=== PATIENT | female | born 1965 | race Caucasian/White ===

== ENCOUNTER 2018-12-21 10:22 | Inpatient (IN) | payer OTHER ==
[~2018-12-21] VITALS: Ht 162.6 cm; Wt 65.8 kg
[2018-12-21 10:31] VITALS: Ht 162.6 cm; Wt 65.8 kg
[2018-12-21 11:35] LABS: CALCIUM 8.5 mg/dL (8.5-10.1); CARBON DIOXIDE 30.6 mmol/L (21-32); CHLORIDE SERUM 93 mmol/L (98-107); CREATININE SERUM 2.6 mg/dL (0.6-1.0); GFR1 20 mL/min; GLUCOSE SERUM 117 mg/dL (74-106); SODIUM SERUM 133 mmol/L (136-145)
[2018-12-21 11:39] LABS: UA SPECIFIC GRAVITY >=1.030 (1.005-1.035); microscopic required? YES; urine erythrocyte 2+ (NEGATIVE)
[2018-12-21 11:39] LABS: AMPHETAMINE QUAL UR NONE DETECTED (See below)
[2018-12-21 11:46] LABS: ALKALINE PHOSPHATASE 110 U/L (46-116); ALT/SGPT 26 U/L (14-59); AST/SGOT 39 U/L (15-37); BILIRUBIN TOTAL 0.58 mg/dL (0.20-1.00); MAGNESIUM 2.7 mg/dL (1.8-2.4); T4(THYROXINE) 5.4 ug/dL (4.7-13.3); TOTAL PROTEIN, SERUM 6.3 g/dL (6.4-8.2)
[2018-12-21 11:54] LABS: LIPASE 7 IU/L (73-393)
[2018-12-21 11:56] LABS: ALBUMIN 1.8 g/dL (3.4-5.0); CHOLESTEROL 79 mg/dL (<200); HDL CHOLESTEROL 9 mg/dL (40-60)
[2018-12-21 12:02] LABS: RED CELL DISTRIBUTION WIDTH 19.1 % (11.5-14.5)
[2018-12-21 12:03] LABS: PLATELET COUNT 1307 x10^3mcL (130-400)
[2018-12-21 12:36] LABS: BASOPHIL 0 % (0-2); MONOCYTE 5 % (0-7); SEGMENTED NEUTROPHILS 82 % (37-75)
[2018-12-21 12:37] LABS: BAND NEUTROPHIL 10 % (0-10)
[2018-12-21 12:40] LABS: rbc morphology (normal/abnorm) ABNORMAL (NORMAL)
[2018-12-21 12:43] LABS: target cell (codocyte) 2+
[2018-12-21 12:45] LABS: burr cell (echinocyte) 1+
[2018-12-21 17:11] VITALS: BP 94/48
[2018-12-21 20:33] VITALS: BP 91/50
[2018-12-21 22:50] VITALS: BP 98/51
[2018-12-22 04:36] VITALS: BP 97/50
[2018-12-22 06:32] LABS: CARBON DIOXIDE 29.6 mmol/L (21-32); CREATININE SERUM 1.8 mg/dL (0.6-1.0); MAGNESIUM 2.8 mg/dL (1.8-2.4)
[2018-12-22 06:41] LABS: IRON 22 ug/dL (50-170); TOTAL IRON BINDING CAPACITY 136 ug/dL (250-450)
[2018-12-22 06:43] LABS: IRON 23 ug/dL (50-170); TOTAL IRON BINDING CAPACITY 137 ug/dL (250-450)
[2018-12-22 06:59] LABS: POTASSIUM SERUM 2.4 mmol/L (3.5-5.1)
[2018-12-22 08:08] LABS: RED CELL DISTRIBUTION WIDTH 19.4 % (11.5-14.5)
[2018-12-22 08:09] LABS: PLATELET COUNT 896 x10^3mcL (130-400)
[2018-12-22 08:25] VITALS: BP 95/52
[2018-12-22 08:51] LABS: MONOCYTE 3 % (0-7); SEGMENTED NEUTROPHILS 96 % (37-75)
[2018-12-22 08:53] LABS: PLATELET MORPHOLOGY PLATELETS INCREASED; rbc morphology (normal/abnorm) ABNORMAL (NORMAL)
[2018-12-22 11:54] VITALS: BP 103/42
[2018-12-22 16:47] VITALS: BP 98/47
[2018-12-22 20:00] VITALS: BP 109/44
[2018-12-23 04:06] VITALS: BP 93/45
[2018-12-23 08:50] VITALS: BP 109/48
[2018-12-23 09:20] LABS: ALKALINE PHOSPHATASE 159 U/L (46-116); ALT/SGPT 16 U/L (14-59); AST/SGOT 19 U/L (15-37); BILIRUBIN TOTAL 0.82 mg/dL (0.20-1.00); CALCIUM 7.1 mg/dL (8.5-10.1); CARBON DIOXIDE 26.1 mmol/L (21-32); CHLORIDE SERUM 103 mmol/L (98-107); GFR1 > 60 mL/min; GLUCOSE SERUM 145 mg/dL (74-106); SODIUM SERUM 139 mmol/L (136-145)
[2018-12-23 09:24] LABS: ALBUMIN 1.4 g/dL (3.4-5.0); POTASSIUM SERUM 2.4 mmol/L (3.5-5.1); TOTAL PROTEIN, SERUM 5.3 g/dL (6.4-8.2)
[2018-12-23 09:54] LABS: RED CELL DISTRIBUTION WIDTH 19.4 % (11.5-14.5)
[2018-12-23 09:55] LABS: PLATELET COUNT 890 x10^3mcL (130-400)
[2018-12-23 10:28] LABS: MONOCYTE 2 % (0-7); SEGMENTED NEUTROPHILS 95 % (37-75); rbc morphology (normal/abnorm) ABNORMAL (NORMAL)
[2018-12-23 10:30] LABS: PLATELET MORPHOLOGY INCREASD.
[2018-12-23 17:22] VITALS: BP 95/51
[2018-12-23 20:22] VITALS: BP 113/53
[2018-12-24 05:37] VITALS: BP 92/52
[2018-12-24 06:18] LABS: CALCIUM 6.8 mg/dL (8.5-10.1); CHLORIDE SERUM 106 mmol/L (98-107); CREATININE SERUM 0.7 mg/dL (0.6-1.0); GFR1 > 60 mL/min; GLUCOSE SERUM 111 mg/dL (74-106); MAGNESIUM 2.5 mg/dL (1.8-2.4); SODIUM SERUM 140 mmol/L (136-145)
[2018-12-24 06:33] LABS: RED CELL DISTRIBUTION WIDTH 19.5 % (11.5-14.5)
[2018-12-24 06:55] LABS: POTASSIUM SERUM 2.8 mmol/L (3.5-5.1)
[2018-12-24 08:15] LABS: BAND NEUTROPHIL 1 % (0-10); BASOPHIL 0 % (0-2); MONOCYTE 6 % (0-7); SEGMENTED NEUTROPHILS 89 % (37-75)
[2018-12-24 08:16] LABS: PLATELET MORPHOLOGY PLATELETS INCREASED; rbc morphology (normal/abnorm) ABNORMAL (NORMAL)
[2018-12-24 08:20] LABS: PLATELET COUNT 959 x10^3mcL (130-400)
[2018-12-24 08:38] VITALS: BP 113/51
[2018-12-24 16:30] VITALS: BP 118/58
[2018-12-24 19:15] VITALS: BP 115/59
[2018-12-24 20:44] VITALS: BP 108/49
[2018-12-25 04:34] VITALS: BP 114/63
[2018-12-25 06:28] LABS: CALCIUM 6.9 mg/dL (8.5-10.1); CARBON DIOXIDE 26.2 mmol/L (21-32); CHLORIDE SERUM 105 mmol/L (98-107); CREATININE SERUM 0.7 mg/dL (0.6-1.0); GFR1 > 60 mL/min; GLUCOSE SERUM 81 mg/dL (74-106); MAGNESIUM 2.1 mg/dL (1.8-2.4); POTASSIUM SERUM 3.4 mmol/L (3.5-5.1); SODIUM SERUM 139 mmol/L (136-145)
[2018-12-25 07:42] LABS: PLATELET COUNT 951 x10^3mcL (130-400); RED CELL DISTRIBUTION WIDTH 25.4 % (11.5-14.5)
[2018-12-25 08:23] LABS: BAND NEUTROPHIL 12 % (0-10); BASOPHIL 0 % (0-2); MONOCYTE 8 % (0-7); SEGMENTED NEUTROPHILS 75 % (37-75)
[2018-12-25 08:28] LABS: rbc morphology (normal/abnorm) ABNORMAL (NORMAL)
[2018-12-25 08:29] LABS: PLATELET MORPHOLOGY PLATELETS INCREASED; burr cell (echinocyte) 1+; ovalocyte/elliptocyte 1+; target cell (codocyte) 1+; tear drop cell (dacryocyte) 2+
[2018-12-25 08:38] VITALS: BP 108/51
[2018-12-25 13:21] VITALS: BP 108/51
[2018-12-25] MEDS ORDERED: ACETAMINOPHEN-H1 TA1 PO (14:40)
[2018-12-25] MEDS ORDERED: CYCLOBENZAPRINE5 MG PO (14:40)
[2018-12-25 17:38] VITALS: BP 108/58
[2018-12-25 22:00] VITALS: BP 131/51
[2018-12-26 06:25] VITALS: BP 111/56
[2018-12-26 07:28] LABS: CALCIUM 6.9 mg/dL (8.5-10.1); CARBON DIOXIDE 24.3 mmol/L (21-32); CHLORIDE SERUM 102 mmol/L (98-107); CREATININE SERUM 0.6 mg/dL (0.6-1.0); GFR1 > 60 mL/min; GLUCOSE SERUM 83 mg/dL (74-106); SODIUM SERUM 136 mmol/L (136-145)
[2018-12-26 07:34] LABS: RED CELL DISTRIBUTION WIDTH 26.3 % (11.5-14.5)
[2018-12-26 07:38] LABS: PLATELET COUNT 1120 x10^3mcL (130-400)
[2018-12-26 08:01] LABS: POTASSIUM SERUM 2.9 mmol/L (3.5-5.1)
[2018-12-26 11:21] LABS: BAND NEUTROPHIL 14 % (0-10); BASOPHIL 0 % (0-2); MONOCYTE 6 % (0-7); PLATELET MORPHOLOGY PLATELETS INCREASED; SEGMENTED NEUTROPHILS 74 % (37-75); rbc morphology (normal/abnorm) ABNORMAL (NORMAL)
[2018-12-26 11:22] LABS: burr cell (echinocyte) 1+; target cell (codocyte) 1+
[2018-12-26 11:23] LABS: ovalocyte/elliptocyte 1+; tear drop cell (dacryocyte) 1+
[2018-12-26 16:48] VITALS: BP 120/63
[2018-12-26 21:58] VITALS: BP 121/64
[2018-12-26 23:18] LABS: APPEARANCE FLUID CLOUDY; COLOR FLUID MILKY; SITE FLUID LEFT; SOURCE FLUID LEFT PELVIC ABCESS
[2018-12-26 23:19] LABS: RBC FLUID 110 /cumm; WBC FLUID 220880 /cumm
[2018-12-27 06:23] VITALS: BP 129/64
[2018-12-27 10:00] VITALS: BP 138/70
[2018-12-27 16:35] VITALS: BP 136/67
[2018-12-27 21:07] VITALS: BP 143/70
[2018-12-28 06:10] VITALS: BP 107/65
[2018-12-28 06:24] LABS: ALKALINE PHOSPHATASE 137 U/L (46-116); ALT/SGPT 9 U/L (14-59); AST/SGOT 16 U/L (15-37); BILIRUBIN TOTAL 0.54 mg/dL (0.20-1.00); CALCIUM 7.3 mg/dL (8.5-10.1); CARBON DIOXIDE 23.9 mmol/L (21-32); CHLORIDE SERUM 105 mmol/L (98-107); CREATININE SERUM 0.6 mg/dL (0.6-1.0); GFR1 > 60 mL/min; GLUCOSE SERUM 83 mg/dL (74-106); MAGNESIUM 1.6 mg/dL (1.8-2.4); POTASSIUM SERUM 3.7 mmol/L (3.5-5.1); SODIUM SERUM 138 mmol/L (136-145)
[2018-12-28 06:25] LABS: ALBUMIN 1.3 g/dL (3.4-5.0); TOTAL PROTEIN, SERUM 5.5 g/dL (6.4-8.2)
[2018-12-28 08:34] LABS: RED CELL DISTRIBUTION WIDTH 27.9 % (11.5-14.5)
[2018-12-28 08:36] LABS: PLATELET COUNT 1164 x10^3mcL (130-400)
[2018-12-28 09:46] VITALS: BP 140/70
[2018-12-28 13:15] LABS: BAND NEUTROPHIL 9 % (0-10); MONOCYTE 5 % (0-7); SEGMENTED NEUTROPHILS 79 % (37-75)
[2018-12-28 13:16] LABS: burr cell (echinocyte) 1+; ovalocyte/elliptocyte 1+; rbc morphology (normal/abnorm) ABNORMAL (NORMAL); target cell (codocyte) 1+; tear drop cell (dacryocyte) 1+
[2018-12-28 13:17] LABS: PLATELET MORPHOLOGY PLATELETS INCREASED
[2018-12-28 16:53] VITALS: BP 128/64
[2018-12-28 19:47] VITALS: BP 132/67
[2018-12-29 05:12] VITALS: BP 127/74
[2018-12-29 06:29] LABS: ALKALINE PHOSPHATASE 161 U/L (46-116); ALT/SGPT 12 U/L (14-59); AST/SGOT 16 U/L (15-37); BILIRUBIN TOTAL 0.6 mg/dL (0.20-1.00); CALCIUM 7.4 mg/dL (8.5-10.1); CARBON DIOXIDE 26.9 mmol/L (21-32); CHLORIDE SERUM 105 mmol/L (98-107); CREATININE SERUM 0.6 mg/dL (0.6-1.0); GFR1 > 60 mL/min; GLUCOSE SERUM 73 mg/dL (74-106); MAGNESIUM 1.7 mg/dL (1.8-2.4); POTASSIUM SERUM 3.7 mmol/L (3.5-5.1); SODIUM SERUM 140 mmol/L (136-145)
[2018-12-29 07:14] LABS: ALBUMIN 1.5 g/dL (3.4-5.0)
[2018-12-29 08:23] LABS: PLATELET COUNT 1306 x10^3mcL (130-400)
[2018-12-29 09:12] VITALS: BP 134/65
[2018-12-29 10:29] LABS: BAND NEUTROPHIL 10 % (0-10); BASOPHIL 0 % (0-2); MONOCYTE 6 % (0-7); SEGMENTED NEUTROPHILS 74 % (37-75); rbc morphology (normal/abnorm) ABNORMAL (NORMAL)
[2018-12-29 10:30] LABS: burr cell (echinocyte) 1+; target cell (codocyte) 1+; tear drop cell (dacryocyte) 1+
[2018-12-29 10:31] LABS: PLATELET MORPHOLOGY PLATELETS INCREASED
[2018-12-29 16:29] VITALS: BP 128/67
[2018-12-29 21:35] VITALS: BP 125/64
[2018-12-30 05:40] VITALS: BP 130/57
[2018-12-30 08:39] VITALS: BP 125/72
[2018-12-30 15:12] LABS: CALCIUM 7.2 mg/dL (8.5-10.1); CARBON DIOXIDE 27.5 mmol/L (21-32); CHLORIDE SERUM 108 mmol/L (98-107); CREATININE SERUM 0.6 mg/dL (0.6-1.0); GFR1 > 60 mL/min; GLUCOSE SERUM 128 mg/dL (74-106); POTASSIUM SERUM 3.4 mmol/L (3.5-5.1); SODIUM SERUM 143 mmol/L (136-145)
[2018-12-30 16:35] VITALS: BP 139/63
[2018-12-30 21:05] VITALS: BP 123/52
[2018-12-30 21:49] VITALS: BP 123/52
[2018-12-31 05:58] VITALS: BP 137/66
[2018-12-31 06:30] LABS: CALCIUM 7.3 mg/dL (8.5-10.1); CARBON DIOXIDE 27.6 mmol/L (21-32); CHLORIDE SERUM 106 mmol/L (98-107); CREATININE SERUM 0.6 mg/dL (0.6-1.0); GFR1 > 60 mL/min; GLUCOSE SERUM 91 mg/dL (74-106); SODIUM SERUM 142 mmol/L (136-145)
[2018-12-31 07:04] LABS: POTASSIUM SERUM 2.8 mmol/L (3.5-5.1)
[2018-12-31 09:33] VITALS: BP 142/65
[2018-12-31 17:26] VITALS: BP 141/75
[2018-12-31 20:33] VITALS: BP 131/67
[2019-01-01 06:01] VITALS: BP 142/64
[2019-01-01 06:54] LABS: BASOPHIL % 0.1 % (0-2)
[2019-01-01 07:00] LABS: ALKALINE PHOSPHATASE 161 U/L (46-116); ALT/SGPT 9 U/L (14-59); AST/SGOT 11 U/L (15-37); BILIRUBIN TOTAL 0.5 mg/dL (0.20-1.00); CALCIUM 7.4 mg/dL (8.5-10.1); CARBON DIOXIDE 25.7 mmol/L (21-32); CHLORIDE SERUM 108 mmol/L (98-107); CREATININE SERUM 0.6 mg/dL (0.6-1.0); GFR1 > 60 mL/min; GLUCOSE SERUM 77 mg/dL (74-106); MAGNESIUM 1.4 mg/dL (1.8-2.4); POTASSIUM SERUM 3.1 mmol/L (3.5-5.1); SODIUM SERUM 142 mmol/L (136-145)
[2019-01-01 07:01] LABS: RED CELL DISTRIBUTION WIDTH 29.1 % (11.5-14.5)
[2019-01-01 07:06] LABS: ALBUMIN 1.3 g/dL (3.4-5.0); PLATELET COUNT 1123 x10^3mcL (130-400); TOTAL PROTEIN, SERUM 5.6 g/dL (6.4-8.2)
[2019-01-01 09:44] VITALS: BP 130/63
[2019-01-01 10:13] LABS: rbc morphology (normal/abnorm) ABNORMAL (NORMAL)
[2019-01-01 17:02] VITALS: BP 142/105
[2019-01-01 17:40] VITALS: BP 142/105
[2019-01-01 18:07] VITALS: BP 128/71
[2019-01-01 18:23] LABS: microscopic required? NO
[2019-01-01 18:28] LABS: UA SPECIFIC GRAVITY 1.025 (1.005-1.035); urine erythrocyte NEGATIVE (NEGATIVE)
[2019-01-01 19:46] VITALS: BP 118/59
[2019-01-02 05:36] VITALS: BP 140/65
[2019-01-02 07:03] LABS: CALCIUM 7.4 mg/dL (8.5-10.1); CARBON DIOXIDE 24.6 mmol/L (21-32); CHLORIDE SERUM 108 mmol/L (98-107); CREATININE SERUM 0.5 mg/dL (0.6-1.0); GFR1 > 60 mL/min; GLUCOSE SERUM 83 mg/dL (74-106); MAGNESIUM 1.9 mg/dL (1.8-2.4); SODIUM SERUM 143 mmol/L (136-145)
[2019-01-02 07:52] LABS: RED CELL DISTRIBUTION WIDTH 29.7 % (11.5-14.5)
[2019-01-02 07:58] LABS: PLATELET COUNT 1020 x10^3mcL (130-400)
[2019-01-02 08:28] VITALS: BP 133/65
[2019-01-02 08:39] LABS: BAND NEUTROPHIL 0 % (0-10); BASOPHIL 0 % (0-2); MONOCYTE 8 % (0-7); PLATELET MORPHOLOGY PLATELETS INCREASED; SEGMENTED NEUTROPHILS 83 % (37-75); rbc morphology (normal/abnorm) ABNORMAL (NORMAL)
[2019-01-02 08:41] LABS: burr cell (echinocyte) 1+; target cell (codocyte) 1+; tear drop cell (dacryocyte) 1+
[2019-01-02 08:55] LABS: ALBUMIN 1.2 g/dL (3.4-5.0); AST/SGOT 13 U/L (15-37); BILIRUBIN TOTAL 0.4 mg/dL (0.20-1.00); TOTAL PROTEIN, SERUM 5.4 g/dL (6.4-8.2)
[2019-01-02 08:56] LABS: ALKALINE PHOSPHATASE 155 U/L (46-116); ALT/SGPT 7 U/L (14-59)
[2019-01-02 08:59] LABS: POTASSIUM SERUM 2.9 mmol/L (3.5-5.1)
[2019-01-02 16:23] VITALS: BP 148/76
[2019-01-02 21:55] VITALS: BP 133/61
[2019-01-03 05:46] VITALS: BP 142/68
[2019-01-03 07:02] LABS: ALKALINE PHOSPHATASE 156 U/L (46-116); ALT/SGPT 7 U/L (14-59); AST/SGOT 6 U/L (15-37); CALCIUM 7.4 mg/dL (8.5-10.1); CARBON DIOXIDE 26.9 mmol/L (21-32); CHLORIDE SERUM 110 mmol/L (98-107); CREATININE SERUM 0.5 mg/dL (0.6-1.0); GFR1 > 60 mL/min; GLUCOSE SERUM 92 mg/dL (74-106); MAGNESIUM 1.7 mg/dL (1.8-2.4); POTASSIUM SERUM 3.3 mmol/L (3.5-5.1); SODIUM SERUM 144 mmol/L (136-145)
[2019-01-03 07:03] LABS: ALBUMIN 1.2 g/dL (3.4-5.0); TOTAL PROTEIN, SERUM 5.6 g/dL (6.4-8.2)
[2019-01-03 07:49] LABS: RED CELL DISTRIBUTION WIDTH 29.6 % (11.5-14.5)
[2019-01-03 07:52] LABS: PLATELET COUNT 1033 x10^3mcL (130-400)
[2019-01-03 08:21] VITALS: BP 151/75
[2019-01-03 09:27] LABS: BAND NEUTROPHIL 0 % (0-10); BASOPHIL 0 % (0-2); MONOCYTE 8 % (0-7); SEGMENTED NEUTROPHILS 80 % (37-75)
[2019-01-03 09:28] LABS: rbc morphology (normal/abnorm) ABNORMAL (NORMAL)
[2019-01-03 09:30] LABS: burr cell (echinocyte) 1+; target cell (codocyte) 1+; tear drop cell (dacryocyte) 1+
[2019-01-03 15:08] VITALS: BP 151/75
[2019-01-03 17:12] VITALS: BP 151/76
[2019-01-03 19:56] VITALS: BP 148/72
[2019-01-04 04:36] VITALS: BP 114/75
[2019-01-04 05:04] VITALS: BP 151/79
[2019-01-04 06:59] LABS: ALKALINE PHOSPHATASE 157 U/L (46-116); ALT/SGPT 7 U/L (14-59); AST/SGOT 6 U/L (15-37); BILIRUBIN TOTAL 0.32 mg/dL (0.20-1.00); CALCIUM 7.5 mg/dL (8.5-10.1); CARBON DIOXIDE 29.7 mmol/L (21-32); CHLORIDE SERUM 110 mmol/L (98-107); CREATININE SERUM 0.5 mg/dL (0.6-1.0); GFR1 > 60 mL/min; GLUCOSE SERUM 88 mg/dL (74-106); MAGNESIUM 1.7 mg/dL (1.8-2.4); POTASSIUM SERUM 4.1 mmol/L (3.5-5.1); SODIUM SERUM 144 mmol/L (136-145)
[2019-01-04 07:02] LABS: ALBUMIN 1.2 g/dL (3.4-5.0); TOTAL PROTEIN, SERUM 5.6 g/dL (6.4-8.2)
[2019-01-04 08:18] LABS: RED CELL DISTRIBUTION WIDTH 29.9 % (11.5-14.5)
[2019-01-04 13:46] LABS: PLATELET COUNT 1000 x10^3mcL (130-400)
[2019-01-04 13:51] LABS: rbc morphology (normal/abnorm) NORMAL (NORMAL)
== END 2019-01-04 07:17 | disposition short-term general hospital (02) | DRG 871 ==
LOC: ED 10:22 → MU 15:39 → DU 15:39 → MU 12-22 22:06
PROVIDERS: Emergency Medicine; Internal Medicine; Internal Medicine Infectious Disease; Internal Medicine Nephrology; Internal Medicine Pulmonary Disease; Surgery; ADMIT Internal Medicine Pulmonary Disease
PROC: 30233N1 Transfusion of Nonautologous Red Blood Cells into Peripheral Vein, Percutaneous Approach (ICD-10-PCS; principal; 2018-12-21)
PROC: 0W9J3ZZ Drainage of Pelvic Cavity, Percutaneous Approach (ICD-10-PCS; 2018-12-27)
DX: A41.9 Sepsis, unspecified organism (principal); E43 Unspecified severe protein-calorie malnutrition; N18.4 Chronic kidney disease, stage 4 (severe); E87.1 Hypo-osmolality and hyponatremia; N17.9 Acute kidney failure, unspecified; N13.6 Pyonephrosis; F12.20 Cannabis dependence, uncomplicated; K59.09 Other constipation; D17.1 Benign lipomatous neoplasm of skin and subcutaneous tissue of trunk; F17.210 Nicotine dependence, cigarettes, uncomplicated; Z68.25 Body mass index [BMI] 25.0-25.9, adult; N73.9 Female pelvic inflammatory disease, unspecified; N13.9 Obstructive and reflux uropathy, unspecified; F10.20 Alcohol dependence, uncomplicated; Y90.9 Presence of alcohol in blood, level not specified; D64.9 Anemia, unspecified; D47.3 Essential (hemorrhagic) thrombocythemia; E87.6 Hypokalemia; E87.8 Other disorders of electrolyte and fluid balance, not elsewhere classified
CPT/HCPCS: 82962; 90658; 90732; 99406; C1729; C9113; G0378; G0480; J0132; J1885; J1940; J2001; J2270; J2405; J2543; J3010; J3370; J3475; J3480; J3490; J7030; J7040; J7042; J7050; P9016; Q0092; Q9966; Q9967